=== PATIENT | female | born 1980 | race Caucasian/White ===

== ENCOUNTER 2017-11-08 11:39 | Outpatient (CLI) | payer MEDICAID | END 2017-11-08 14:50 | disposition home or self-care (01) | LOC: OBT 11:39 → L-D 11:40 → OBT 14:50 | DX: O40.3XX0 Polyhydramnios, third trimester, not applicable or unspecified (principal); O36.8130 Decreased fetal movements, third trimester, not applicable or unspecified; O09.523 Supervision of elderly multigravida, third trimester; Z3A.36 36 weeks gestation of pregnancy | CPT/HCPCS: 76818 ==

== ENCOUNTER 2017-11-30 09:59 | Inpatient (IN) | payer MEDICAID ==
[2017-11-30] MEDS ORDERED: MISOPROSTOL 200 MCG TAB PR (11:00)
[2017-11-30] MEDS ORDERED: METHYLERGONOVINE 0.2 MG INJ IM (11:00)
[2017-11-30] MEDS ORDERED: LIDOCAINE 1% (MPF) 30 ML INJ INJ (11:00)
[2017-11-30] MEDS ORDERED: CARBOPROST 250 MCG INJ IM (11:00)
[2017-11-30] MEDS ORDERED: BUTORPHANOL 2 MG INJ IV ×2 (11:00)
[2017-11-30] MEDS: LACTATED RINGER'S 1,000 ML IV ×2 (11:26→14:25)
[2017-11-30 11:34] LABS: ADD MAN DIFF? NO
[2017-11-30 11:36] LABS: BASOPHILS % 0.4 % (0.0-2.0); EOSINOPHILS # 0.2 10^3/ul (0.0-0.5); EOSINOPHILS % 2.1 % (0.0-7.0); HEMATOCRIT 32.5 % (37.0-47.0); HEMOGLOBIN 10.6 g/dl (12.0-16.0); LYMPHOCYTES # 1.9 10^3/ul (0.8-2.9); LYMPHOCYTES % 22.1 % (15.0-51.0); MEAN CORPUSCULAR HEMOGLOBIN 27.6 pg (29.0-33.0); MEAN CORPUSCULAR HGB CONC 32.6 g/dl (32.0-37.0); MEAN CORPUSCULAR VOLUME 84.6 fl (82.0-101.0); MEAN PLATELET VOLUME 11.1 fl (7.4-10.4); MONOCYTE # 0.6 10^3/ul (0.3-0.9); MONOCYTES % 6.9 % (0.0-11.0); NEUTROPHIL # 5.8 10^3/ul (1.6-7.5); NEUTROPHILS % 67.8 % (39.0-77.0); PLATELET COUNT 208 10^3/UL (140-415); RED BLOOD COUNT 3.84 10^6/ul (4.20-5.40); RED CELL DISTRIBUTION WIDTH 13.8 % (11.5-14.5)
[2017-11-30 11:36] LABS: WHITE BLOOD COUNT 8.5 10^3/ul (4.8-10.8)
[2017-11-30 12:03] LABS: INR 0.92; PROTIME 12.4 Sec (11.9-14.9)
[2017-11-30 12:04] LABS: PARTIAL THROMBOPLASTIN TIME 24.7 Sec (25.0-35.0)
[2017-11-30] MEDS: OXYTOCIN 30 UNITS/LR 500 ML IV ×3 (13:04→22:11)
[2017-11-30 13:11] LABS: RUPTURE FETAL MEMBRANES POSITIVE (NEGATIVE)
[2017-11-30] MEDS ORDERED: NALOXONE (0.4 MG/ML) INJ IV (14:00)
[2017-11-30] MEDS ORDERED: FENTAnyl 2MCG/ML-ROPIV 0.2% 100 ML BAG EPI (14:00)
[2017-11-30] MEDS ORDERED: DIPHENHYDRAMINE 50 MG INJ IV (14:00)
[2017-11-30] MEDS ORDERED: ONDANSETRON 4 MG INJ IV ×2 (14:00→21:30)
[2017-11-30 18:07] LABS: Arterial Cord Blood pCO2 67.6 mmHG (25-50); CBA Base Excess -3.1 mmol/L; CBA COHb 0.3 %; CBA Total Hemglobin 14.5 g/dl; Fraction OxyHgb Cord Arterial 8.4 %; MODE ROOM AIR; MetHgb Cord Arterial 2.5 %; Sample Type CBA; Site CORD
[2017-11-30 18:09] LABS: CBV COHb 1.4 %; CBV Oxygen Sat 77.8 mmHG; CBV Total Hemglobin 18.1 g/dl; Cord Blood Venous pO2 32.3 mmHG (15.0-45.0); Fraction OxyHgb Cord Venous 75.9 %; MODE ROOM AIR; Sample Type CBV; Site CORD
[2017-11-30] MEDS ORDERED: LANOLIN 7 GM TUBE TOP (21:30)
[2017-11-30] MEDS ORDERED: ACETAMINOPHEN 325 MG TAB PO (21:30)
[2017-11-30] MEDS ORDERED: BENZOCAINE 20% 56 ML SPRAY TOP (21:30)
[2017-11-30] MEDS ORDERED: WITCH HAZEL/GLYCERIN PAD PR (21:30)
[2017-11-30] MEDS ORDERED: DIBUCAINE 1% 30 GM OINT PR (21:30)
[2017-11-30] MEDS: HYDROCODONE/APAP (5/325) TAB PO (22:10)
[2017-11-30 22:31] LABS: RAPID PLASMA REAGIN NONREACTIVE (NR)
[2017-11-30] MEDS: IBUPROFEN 600 MG TAB PO (23:56)
[2017-12-01] MEDS: IBUPROFEN 600 MG TAB PO ×3 (05:42→17:37)
[2017-12-01 08:12] LABS: ADD MAN DIFF? NO
[2017-12-01 08:14] LABS: BASOPHIL # 0.1 10^3/ul (0.0-0.1); BASOPHILS % 0.5 % (0.0-2.0); EOSINOPHILS # 0.3 10^3/ul (0.0-0.5); EOSINOPHILS % 2.5 % (0.0-7.0); HEMATOCRIT 31.8 % (37.0-47.0); HEMOGLOBIN 10.5 g/dl (12.0-16.0); LYMPHOCYTES % 27.3 % (15.0-51.0); MEAN CORPUSCULAR HEMOGLOBIN 27.9 pg (29.0-33.0); MEAN CORPUSCULAR VOLUME 84.6 fl (82.0-101.0); MEAN PLATELET VOLUME 11.6 fl (7.4-10.4); MONOCYTE # 0.8 10^3/ul (0.3-0.9); MONOCYTES % 7.3 % (0.0-11.0); NEUTROPHIL # 6.8 10^3/ul (1.6-7.5); NEUTROPHILS % 61.9 % (39.0-77.0); PLATELET COUNT 216 10^3/UL (140-415); RED BLOOD COUNT 3.76 10^6/ul (4.20-5.40); RED CELL DISTRIBUTION WIDTH 13.5 % (11.5-14.5)
[2017-12-01 08:14] LABS: WHITE BLOOD COUNT 10.9 10^3/ul (4.8-10.8)
[2017-12-01] MEDS: HYDROCODONE/APAP (5/325) TAB PO (08:56)
[2017-12-01] MEDS: SENNA/DOCUSATE NA (8.6MG/50MG) TAB PO ×2 (08:56→21:55)
[2017-12-01] MEDS: OXYCODONE/ASPIRIN (4.88/325) TAB PO (16:07)
[2017-12-02] MEDS: IBUPROFEN 600 MG TAB PO ×3 (00:30→12:22)
[2017-12-02] MEDS: OXYCODONE/ASPIRIN (4.88/325) TAB PO (08:16)
[2017-12-02] MEDS: SENNA/DOCUSATE NA (8.6MG/50MG) TAB PO (08:16)
[2017-12-02] MEDS: MEASLES,MUMPS,RUBELLA VACCINE INJ SC* (09:00)
== END 2017-12-02 18:10 | disposition home or self-care (01) | DRG 775 ==
LOC: OBT 09:59 → L-D 10:01 → OBT 10:45 → L-D 10:45 → PP1 20:37
PROVIDERS: Obstetrics & Gynecology
PROC: 10E0XZZ Delivery of Products of Conception, External Approach (ICD-10-PCS; principal; 2017-11-30)
DX: O80 Encounter for full-term uncomplicated delivery (principal); Z37.0 Single live birth; Z3A.39 39 weeks gestation of pregnancy
CPT/HCPCS: 36415; 36600; 62319; 76815; 82803; 84112; 85025; 85610; 85730; 86592; 86900; 86901; 99464

== ENCOUNTER 2019-04-25 12:15 | Emergency (ER) | payer MEDICAID ==
[2019-04-25] MEDS: HYDROCODONE/APAP (5/325) TAB PO (13:06)
[2019-04-25] MEDS: IBUPROFEN 800 MG TAB PO (13:06)
== END 2019-04-25 14:08 | disposition home or self-care (01) ==
LOC: FTE 12:15
DX: M25.561 Pain in right knee (principal)
CPT/HCPCS: 99283; Z7502